=== PATIENT | male | born 1980 | race Caucasian/White ===

== ENCOUNTER 2016-06-30 18:47 | Emergency (ER) | payer SELFPAY ==
[~2016-06-30] VITALS: Ht 177.8 cm; Wt 72.0 kg
[~2016-06-30 18:47] MED LIST: BACTRIM,SEPT1 TABLET PO; INDOCIN25 MG PO; KEFLEX500 MG PO; KENALOG,ARISTOC80 G1 TP; NAPROSYN500 MG PO; NAPROXEN500 MG PO; NOHOMEMEDS; NORCO 7.5/321 TABLET PO; VALIUM5 MG PO
[2016-06-30] MEDS ORDERED: NAPROXEN500 MG PO (19:15)
[2016-06-30] MEDS ORDERED: AMOXICILLIN500 MG PO (19:15)
[2016-06-30 19:24] VITALS: BP 152/87
== END 2016-06-30 19:25 | disposition home or self-care (01) ==
LOC: EME 18:47
DX: K04.7 Periapical abscess without sinus (principal)
CPT/HCPCS: 99281; 99284

== ENCOUNTER 2016-12-10 15:33 | Emergency (ER) | payer SELFPAY ==
[~2016-12-10] VITALS: Ht 177.8 cm; Wt 71.8 kg
[~2016-12-10 15:33] MED LIST changes: +AMOXICILLIN500 MG PO
[2016-12-10] MEDS ORDERED: TYLENOL WITH C1 EACH PO (15:42)
[2016-12-10] MEDS ORDERED: PEN-VEE K,VEET500 MG PO (15:42)
[2016-12-10 15:58] VITALS: BP 119/71
== END 2016-12-10 16:00 | disposition home or self-care (01) ==
LOC: EME 15:33
DX: K04.7 Periapical abscess without sinus (principal); F17.200 Nicotine dependence, unspecified, uncomplicated
CPT/HCPCS: 99281; 99283

== ENCOUNTER 2017-02-08 04:35 | Emergency (ER) | payer OTHER ==
[~2017-02-08] VITALS: Ht 177.8 cm; Wt 72.7 kg
[~2017-02-08 04:35] MED LIST changes: +PEN-VEE K,VEET500 MG PO; +TYLENOL WITH C1 EACH PO
[2017-02-08 05:52] VITALS: BP 140/70
== END 2017-02-08 05:53 | disposition home or self-care (01) ==
LOC: EME 04:35
PROC: 2W3QX1Z Immobilization of Right Lower Leg using Splint (ICD-10-PCS; principal; 2017-02-08)
DX: S90.31XA Contusion of right foot, initial encounter (principal); V09.9XXA Pedestrian injured in unspecified transport accident, initial encounter; F17.200 Nicotine dependence, unspecified, uncomplicated
CPT/HCPCS: 73610; 73630; 99281; 99284

== ENCOUNTER 2017-10-05 15:18 | Emergency (ER) | payer SELFPAY ==
[~2017-10-05] VITALS: Ht 180.3 cm; Wt 71.7 kg
[2017-10-05] MEDS ORDERED: NAPROXEN500 MG PO (16:40)
[2017-10-05 16:51] VITALS: BP 115/65
== END 2017-10-05 16:53 | disposition home or self-care (01) ==
LOC: EME 15:18
DX: M65.9 Synovitis and tenosynovitis, unspecified (principal); X50.9XXA Other and unspecified overexertion or strenuous movements or postures, initial encounter; Y99.0 Civilian activity done for income or pay; F17.200 Nicotine dependence, unspecified, uncomplicated
CPT/HCPCS: 73090; 99281; 99284